=== PATIENT | male | born 1950 | race Caucasian/White ===

== ENCOUNTER 2016-08-19 07:47 | Inpatient (IN) ==
[2016-08-18 11:19] LABS: HEMATOCRIT 39.2 % (42.0-52.0); HEMOGLOBIN 13.1 g/dL (14.0-18.0); MCH 31.6 PG (27-31); MCHC 33.4 g/dL (33-37); MCV 94.7 FL (81-99); MPV 9.7 FL (7.4-10.4); RBC 4.14 XMIL (4.7-6.1)
[2016-08-18 11:21] LABS: AGAP 9; BUN 24 mg/dL (8-22); CALCIUM 9.3 mg/dL (8.8-10.2); CHLORIDE 102 mmol/L (98-107); COSMO 280; POTASSIUM 4.8 mmol/L (3.5-5.1); SODIUM 138 mmol/L (136-145); TCO2 27 mmol/L (25-35)
--- NOTE | 2016-08-18 13:59 | EKG Report ---
Test Performed on : 08/18/2016 10:53:33 AM Test Reason : PAT Blood Pressure : / mmHG Vent. Rate : 054 BPM Atrial Rate : 054 BPM P-R Int : 156 ms QRS Dur : 084 ms QT Int : 432 ms P-R-T Axes : 000 082 049 degrees QTc Int : 409 ms Sinus bradycardia. Otherwise normal ECG When compared with ECG of 12-FEB-2009 14:58, Vent. rate has decreased BY 48 BPM Confirmed by Mack FRANCE, Ozzie Edmonds ([id number]) on 08/20/2016 5:19:51 PM
[2016-08-19] MEDS ORDERED: PEPCID ONE (08:11)
[2016-08-19] MEDS ORDERED: REGLAN ONE (08:11)
[2016-08-19] MEDS ORDERED: LR 1,000 ML ONE (08:11)
[2016-08-19] MEDS ORDERED: KEFZOL 1 GM/D5W 50 ML ONE (08:11)
[2016-08-19] MEDS ORDERED: KEFZOL ONE (10:36)
[2016-08-19] MEDS ORDERED: XYLOCAINE 1%/EPI 1:100,000 ONE (10:36)
[2016-08-19] MEDS ORDERED: HEPARIN ONE (10:36)
[2016-08-19] MEDS ORDERED: NS 250 ML ONE (10:36)
[2016-08-19] MEDS ORDERED: DIPRIVAN 1% ONE (11:20)
--- NOTE | 2016-08-19 11:40 | OPERATIVE NOTE ---
PROCEDURE DATE: 08/19/2016 PROCEDURE PERFORMED: Left subclavian port placement. SURGEON: Alex Serrano MD DIRECTOR OF MARKET INTELLIGENCE: Charis. PREOPERATIVE DIAGNOSIS: Metastatic cancer of the rectum. POSTOPERATIVE DIAGNOSIS: Metastatic cancer of the rectum. DESCRIPTION OF PROCEDURE: Satisfactory general anesthesia was achieved. An LMA was used. The left side of the neck and upper anterior chest were prepped and draped in a sterile fashion. We anesthetized the skin in the deltopectoral groove with 1% lidocaine with epinephrine. We incised the skin and developed a subcutaneous pocket inferior to the incision just over the pectoralis major muscle. It was large enough to admit the PowerPort easily. We then accessed the left subclavian vein on the first stick without difficulty. We passed the guidewire without difficulty under fluoroscopic guidance into the superior vena cava. We then passed the dilator and introducer sheath over the guidewire. We then removed the dilator and guidewire and introduced the 9.6-[place] single-lumen silicone catheter through the sheath into the superior vena cava to the junction of the right atrium. We cut the catheter to the appropriate length, passed it on the stem of the port and locked it in position. We placed the port within the pocket. We secured the port there with a 2-0 silk through the subcutaneous tissue and the hole in the rim of the port. We irrigated out the port pocket with Kefzol-impregnated saline. We then closed the subcutaneous tissue with 3-0 Polysorb. We accessed the port. It aspirated and irrigated easily. We gave the patient 4 mL of Hep-Lock. We then closed the skin with a 4-0 Polysorb subcuticular stitch. Telfa and a sterile Op-Site were applied. He tolerated it well and was sent to the recovery room in satisfactory condition.
[2016-08-19] MEDS ORDERED: ZOFRAN ONE (11:41)
[2016-08-19] MEDS ORDERED: XYLOCAINE-MPF 2% ONE (11:41)
[2016-08-19] MEDS ORDERED: NS 1,000 ML ONE (11:45)
[2016-08-19] MEDS ORDERED: ZOFRAN IV PRN ×2 (12:13→12:16)
[2016-08-19] MEDS ORDERED: TYLENOL PO PRN (12:13)
[2016-08-19] MEDS ORDERED: NS 1,000 ML IV SCH ×2 (12:15→12:16)
[2016-08-19] MEDS ORDERED: VENTOLIN HFA INH PRN ×2 (12:16→12:18)
[2016-08-19] MEDS ORDERED: NEURONTIN PO SCH (13:00)
--- NOTE | 2016-08-19 14:01 | CONSULTATION ---
DATE OF CONSULTATION: 08/19/2016 REASON FOR CONSULT: This patient is known to us with metastatic rectal adenocarcinoma to the liver. He had a Port-A-Cath placed today and is being admitted for cycle 1 FOLFIRI with Avastin. HISTORY OF PRESENT ILLNESS: This patient with metastatic rectal adenocarcinoma to the liver status post left subclavian port by Dr. Serrano today is being admitted for initiation of FOLFIRI with Avastin. He is KRAS wild-type. The plan is to proceed with 90% 5-FU and irinotecan beginning today along with Avastin as patient will be admitted under the hospitalist program. Patient does have known bilateral peripheral neuropathy of lower extremities which is why we are avoiding oxaliplatin based chemotherapy. Patient had initially gone to the ER and was referred to Dr. Jennings for colonoscopy. Underwent a colonoscopy which revealed a 4 cm ulcerated mass in the rectum 10 cm from the entry site causing moderate obstruction, the obstruction was traversed. He was then diagnosed with metastatic rectal adenocarcinoma of the liver on CT scan. REVIEW OF SYSTEMS: All other review of systems are negative. ALLERGIES: No known allergies. MEDICATIONS: Gabapentin, lisinopril, Crestor and Mobic. PAST MEDICAL HISTORY: Positive for metastatic rectal adenocarcinoma of the liver, hypertension, hyperlipidemia and neuropathy. SOCIAL HISTORY: Patient smokes half pack cigarettes per day. He has done so for approximately 20 years. Denies alcohol or illicit drug use. FAMILY HISTORY: Noncontributory. PHYSICAL EXAMINATION: Constitutional: The patient appears emaciated, in no acute distress. Eyes: Anicteric. Pupils equal, round, symmetric. ENT: Oral mucosa normal. Cardiovascular: S1, S2 audible auscultation with no heaves, lifts thrills. Pulmonary: Breath sounds clear to auscultation. Normal respiratory effort GI: Abdomen nondistended. Positive bowel sounds. Skin: No petechiae, ecchymosis, or rash. Lymphatic: No palpable enlarged lymph nodes. Neurologic: Alert and oriented x3. DIAGNOSTIC DATA: WBC is 12.18, hemoglobin 13.1, hematocrit 39.2, platelet count is 203,000. Sodium is 138, potassium is 4.8, BUN is 24, creatinine is 1.1. ASSESSMENT AND PLAN: 1. Metastatic rectal adenocarcinoma to the liver. We will begin with cycle 1, day 1 FOLFIRI with Avastin with 5-FU and irinotecan dose reduced by 10%. We will follow his labs closely. Monitor for infusion reactions and side effects. 2. Peripheral neuropathy to bilateral feet. We are avoiding oxaliplatin based chemotherapy at this time. 3. IV access, status post port placement. 4. Deep vein thrombosis prophylaxis. Patient is on Lovenox. 5. Antiemetics: Zofran and decadron. Dictated by ASHLEY Charles for Nikita Flores MD [facility]
--- NOTE | 2016-08-19 14:22 | HISTORY AND PHYSICAL ---
PRIMARY CARE PROVIDER: Joanna. PRIMARY ONCOLOGIST: Dr. Flores. PRIMARY LEARNING AND DEVELOPMENT MANAGER: Dr. Jennings. CHIEF COMPLAINT: Abdominal cramps. HISTORY OF PRESENT ILLNESS: Mr. Ruffin is a 66-year-old, male, with past medical history of hypertension, hyperlipidemia, COPD and diverticulosis who states that earlier last month, particularly the beginning of July he started having abdominal cramps, and decreased bowel movement and frequency. He went to the ER, who sent him to Dr. Jennings as outpatient. Prior to colonoscopy and EGD he was sent for an abdominal CT which showed a mass in the rectosigmoid junction with mets to the liver and colonoscopy/EGD was aborted. He was sent to Dr. Flores who will be treating him for cancer. Today he came in and had a port placement for chemotherapy treatment. Currently he is in no acute distress. He is able to answer all questions appropriately in room 364. Will continue to follow for medical management while Dr. Flores manages his cancer. PAST MEDICAL HISTORY: Hypertension, hyperlipidemia, COPD, now with a mass in the rectosigmoid junction, mets to the liver, left renal stones, and diverticulosis. SURGICAL HISTORY: Port placement in a stage skin graft from cutler. SOCIAL HISTORY: Half pack per day smoker x40 years. Denies alcohol or illicit drug use. His ex- was in the room with him. FAMILY HISTORY: Father with CAD and acute DE. Mother with diabetes mellitus type 2. REVIEW OF SYSTEMS: A Fourteen point review of systems were complete and all were negative except for those mentioned in above HPI. LABORATORY DATA: White blood cells 12,000, hemoglobin 13, hematocrit 39, platelet count 203,000. Sodium 138, potassium 4.8, BUN 24, creatinine is 1.1, glucose 103, calcium 9.3. IMAGING: Abdominal pelvic CT performed on 08/02/2016 revealed a circumferential mass in the rectosigmoid junction, hypodense liver lesions consistent with metastasis, nonobstructive left renal stones, arthrosclerosis, and diverticulosis. PHYSICAL EXAMINATION: VITAL SIGNS: Temperature 97.5 degrees, heart rate 55, respiratory rate 16, blood pressure 114/68, O2 saturation 98%, blood pressure 116/52. GENERAL: Mr. Ruffin is a 66-year-old, male, in no acute distress, able to answer questions appropriately. HEENT: Atraumatic, normocephalic. Pupils equal, round, reactive to light. Extraocular movements intact. Mucous membranes are dry. NECK: No JVD or carotid bruits noted. CARDIOVASCULAR: S1, S2. Bradycardic rate and rhythm. No rubs, gallops, murmurs. PULMONARY: Clear to auscultate. Bilateral breath sounds. No accessory muscle use or work of breathing. Decreased in the bases. Currently on room air. GASTROINTESTINAL: Soft, nontender, nondistended. Positive bowel sounds x4. NEUROLOGIC: Alert and oriented x4. Moves all extremities equally. EXTREMITIES: No edema noted. +2 dorsalis and radial pulses. SKIN: Warm, dry, intact. Port site dry and intact. No hematoma. ASSESSMENT AND PLAN: 1. Mass in the rectosigmoid junction with metastases to the liver. Dr. Flores will be following. He has a new port. Will be starting chemotherapy soon. 2. Hypertension. Continue home medications. 3. Hyperlipidemia. Continue lovastatin. 4. Chronic obstructive pulmonary disease. Continue p.r.n. inhaler albuterol. 5. Tobacco abuse. Cessation discussed. Nicotine patch was ordered per patient request. 6. Deep venous thrombosis prophylaxis Lovenox. 7. Gastrointestinal prophylaxis proton pump inhibitor. Dictated by ASHLEY Rubio for Master Enrique MD
[2016-08-19 14:42] LABS: MANUAL DIFF NEEDED? NO
[2016-08-19] MEDS: NEURONTIN PO SCH ×2 (14:49→21:49)
[2016-08-19] MEDS: NICODERM PATCH TD SCH (14:49)
[2016-08-19 14:55] LABS: BASO% 1.2 % (0.0-0.8); EOS# 0.38 X1000 (0.0-0.7); EOS% 4.5 % (0.0-10.0); HEMATOCRIT 37.8 % (42.0-52.0); HEMOGLOBIN 12.7 g/dL (14.0-18.0); IMM GRAN# 0.02 X1000 (0.0-0.04); IMM GRAN% 0.2 % (0.0-0.5); LYMPH# 2.69 X1000 (1.2-3.4); LYMPH% 31.6 % (20.5-51.1); MCH 31.4 PG (27-31); MCHC 33.6 g/dL (33-37); MCV 93.6 FL (81-99); MONO# 0.59 X1000 (0.11-0.59); MONO% 6.9 % (1.7-9.3); MPV 9.9 FL (7.4-10.4); NEUT% 55.6 % (42.2-75.2); PLT 208 X1000 (130-400); RBC 4.04 XMIL (4.7-6.1)
[2016-08-19] MEDS ORDERED: ZOFRAN 16 MG in NS 100 ML IV ONE ×2 (15:00→18:00)
[2016-08-19] MEDS ORDERED: NS IV ONE ×3 (15:00→19:45)
[2016-08-19] MEDS ORDERED: DECADRON IV ONE (15:00)
[2016-08-19] MEDS: NORCO-5 PO PRN ×2 (15:32→21:50)
[2016-08-19] MEDS ORDERED: REGLAN PO PRN (15:39)
[2016-08-19] MEDS ORDERED: AVASTIN IV ONE (16:00)
[2016-08-19] MEDS ORDERED: [UNRECOGNIZED DRUG - OTHER] IV ONE (17:30)
[2016-08-19] MEDS ORDERED: CAMPTOSAR IV ONE (17:30)
[2016-08-19] MEDS ORDERED: ATROPINE IV ONE (17:30)
[2016-08-19] MEDS ORDERED: D5W IV ONE ×2 (17:30)
[2016-08-19] MEDS ORDERED: PRILOSEC PO SCH (19:00)
[2016-08-19] MEDS ORDERED: [UNRECOGNIZED DRUG - MIXTURE] IV ONE (19:30)
[2016-08-19] MEDS ORDERED: [UNRECOGNIZED DRUG - OTHER] IV ONE (19:45)
[2016-08-19] MEDS: PHENERGAN PO PRN (22:15)
[2016-08-20] MEDS: NORCO-5 PO PRN ×3 (02:52→21:26)
[2016-08-20 06:31] LABS: INR 1.01; PROTIME 10.7 Seconds (9.2-11.7); PTT 24.7 Seconds (22.0-36.0)
[2016-08-20 06:49] LABS: ALBUMIN 3.8 g/dL (3.5-5.0); CALCIUM 9.4 mg/dL (8.8-10.2); MAGNESIUM 2.1 mg/dL (1.5-2.7); POTASSIUM 4.8 mmol/L (3.5-5.1); TOTAL BILIRUBIN 0.36 mg/dL (0.20-1.00); TOTAL PROTEIN 6.4 g/dL (6.3-8.3)
[2016-08-20 08:25] LABS: BASO% 0.1 % (0.0-0.8); HEMATOCRIT 38.7 % (42.0-52.0); HEMOGLOBIN 13.2 g/dL (14.0-18.0); IMM GRAN# 0.03 X1000 (0.0-0.04); IMM GRAN% 0.2 % (0.0-0.5); LYMPH# 1.33 X1000 (1.2-3.4); LYMPH% 10.4 % (20.5-51.1); MANUAL DIFF NEEDED? YES; MCH 31.4 PG (27-31); MCHC 34.1 g/dL (33-37); MCV 92.1 FL (81-99); MONO# 0.35 X1000 (0.11-0.59); MONO% 2.7 % (1.7-9.3); MPV 10.6 FL (7.4-10.4); NEUT% 86.6 % (42.2-75.2); PLT 213 X1000 (130-400)
[2016-08-20] MEDS: MOBIC PO SCH (08:32)
[2016-08-20] MEDS: MIRALAX PO SCH (08:32)
[2016-08-20] MEDS: PRILOSEC PO SCH (08:32)
[2016-08-20] MEDS: NICODERM PATCH TD SCH ×2 (08:32→22:00)
[2016-08-20] MEDS: PERIDEX MT SCH ×2 (08:32→20:19)
[2016-08-20] MEDS: PRINIVIL PO SCH (08:33)
[2016-08-20] MEDS: MEVACOR PO SCH (08:33)
[2016-08-20] MEDS: NEURONTIN PO SCH ×3 (08:33→19:01)
[2016-08-20] MEDS: LOVENOX SUBQ SCH (08:33)
[2016-08-20 08:39] LABS: BANDS 4 % (0-1); LYMPHS 6 % (21-51); MONO 8 % (1-9)
[2016-08-20] MEDS ORDERED: MELOXICAM 15 MG PO SCH (09:00)
[2016-08-20] MEDS ORDERED: MIRALAX PO SCH (09:00)
[2016-08-20] MEDS ORDERED: MEVACOR PO SCH (09:00)
[2016-08-20] MEDS ORDERED: PRINIVIL PO SCH (09:00)
--- NOTE | 2016-08-20 11:48 | PROGRESS NOTE ---
DATE: 08/20/2016 SUBJECTIVE: Mr. Ruffin is a 66-year-old, male. He is in no acute distress. He is able to answer all questions appropriately. He states that he has no pain, nausea or vomiting. No complaints at this time. OBJECTIVE: Vital Signs: Temperature 97.8 degrees, heart rate 68, respiratory rate 18, blood pressure 109/56, O2 saturation 97%. General: Mr. Ruffin is a 66-year-old, male, in no acute distress. Able to answer all questions appropriately. Cardiovascular: S1, S2. Regular rate and rhythm. No rubs, gallops, or murmurs. Pulmonary: Clear to auscultate. Bilateral breath sounds. No accessory muscle use or work of breathing noted. GI: Abdomen soft, nontender, nondistended. Positive bowel sounds x4. Extremities: No edema noted. There are +2 dorsalis and radial pulses. Neurologic: A and O x4. Moves all extremities equally. LABORATORY DATA: White blood cells 12,000, hemoglobin 13, hematocrit 38, platelet count 213. Sodium 139, potassium 4.8, BUN 25, creatinine is 1.3. Glucose 131, magnesium 2.1. Liver enzymes normal. Carcinoembryonic antigen 13.5. IMAGING: None. ASSESSMENT AND PLAN: 1. Metastatic rectal adenocarcinoma to the liver. He completed FOLFIRI with Avastatin with 5-FU and irinotecan. Currently no side effects noted at this time. Followed by Dr. Flores. He has a new Port-A-Cath in the left chest. 2. Hypertension. Continue home medications. 3. Hyperlipidemia. Continue lovastatin. 4. Lower extremity neuropathy. Continue home medications. 5. Chronic obstructive pulmonary disease. Continue as-needed inhaler albuterol. 6. Tobacco abuse. Cessation discussed. Nicotine patch ordered. 7. Situational depression and anxiety. Will start with Remeron at night and as- needed Xanax. 8. Deep venous thrombosis prophylaxis, Lovenox. 9. Gastrointestinal prophylaxis, proton pump inhibitor. 10. Continue to monitor serum creatinine and BUN as they are slightly elevated. Dictated by ASHLEY Rubio for Master Enrique MD MTDD
[2016-08-20 16:22] LABS: URINE CULTURE NEEDED? NO; URINE MICRO REVIEW NEEDED? NO; URINE SOURCE CLEAN CATCH
[2016-08-20 16:41] LABS: BILIRUBIN URINE NEGATIVE (NEGATIVE); BLOOD URINE NEGATIVE (NEGATIVE); COLOR YELLOW; GLUCOSE URINE NEGATIVE (NEGATIVE); LEUKOCYTES URINE NEGATIVE (NEGATIVE); NITRITE URINE NEGATIVE (NEGATIVE); PROTEIN URINE NEGATIVE (NEGATIVE); TURBIDITY URINE CLEAR (CLEAR); UROBILINOGEN URINE NORMAL (NORMAL)
[2016-08-20 16:42] LABS: UR EPITHELIAL CELLS <10 /HPF (<10); URINE BACTERIA NEGATIVE /HPF; URINE RBC <10 /HPF (<10); URINE WBC <10 /HPF (<10)
[2016-08-20] MEDS ORDERED: ZOFRAN 16 MG in NS 100 ML IV ONE (18:00)
[2016-08-20] MEDS ORDERED: [UNRECOGNIZED DRUG - MIXTURE] IV ONE (18:30)
[2016-08-20] MEDS ORDERED: [UNRECOGNIZED DRUG - OTHER] IV ONE (18:45)
[2016-08-20] MEDS ORDERED: NS IV ONE (18:45)
[2016-08-20] MEDS: REMERON SOLTAB PO SCH (20:19)
[2016-08-21] MEDS: PHENERGAN PO PRN (03:15)
[2016-08-21] MEDS: NORCO-5 PO PRN (03:15)
[2016-08-21] MEDS: NORCO-10 PO PRN ×4 (05:57→21:49)
[2016-08-21 06:10] LABS: MANUAL DIFF NEEDED? NO
[2016-08-21 06:22] LABS: BASO% 0.4 % (0.0-0.8); EOS# 0.17 X1000 (0.0-0.7); EOS% 1.8 % (0.0-10.0); HEMATOCRIT 35.3 % (42.0-52.0); HEMOGLOBIN 11.8 g/dL (14.0-18.0); LYMPH# 3.12 X1000 (1.2-3.4); LYMPH% 33.1 % (20.5-51.1); MCH 31.3 PG (27-31); MCHC 33.4 g/dL (33-37); MCV 93.6 FL (81-99); MONO# 0.87 X1000 (0.11-0.59); MONO% 9.2 % (1.7-9.3); MPV 9.9 FL (7.4-10.4); NEUT% 55.5 % (42.2-75.2); PLT 179 X1000 (130-400); RBC 3.77 XMIL (4.7-6.1)
[2016-08-21 06:39] LABS: ALBUMIN 3.3 g/dL (3.5-5.0); CALCIUM 8.5 mg/dL (8.8-10.2); POTASSIUM 3.9 mmol/L (3.5-5.1); TOTAL BILIRUBIN 0.15 mg/dL (0.20-1.00); TOTAL PROTEIN 5.6 g/dL (6.3-8.3)
[2016-08-21] MEDS ORDERED: XANAX PO PRN (09:15)
[2016-08-21] MEDS: MEVACOR PO SCH (09:16)
[2016-08-21] MEDS: PRILOSEC PO SCH (09:16)
[2016-08-21] MEDS: MOBIC PO SCH (09:16)
[2016-08-21] MEDS: LOVENOX SUBQ SCH (09:17)
[2016-08-21] MEDS: NEURONTIN PO SCH ×3 (09:17→17:40)
[2016-08-21] MEDS: PRINIVIL PO SCH (09:17)
[2016-08-21] MEDS: PERIDEX MT SCH (09:17)
[2016-08-21] MEDS: MIRALAX PO SCH (09:17)
[2016-08-21] MEDS: NICODERM PATCH TD SCH ×2 (09:18→21:48)
--- NOTE | 2016-08-21 11:28 | PROGRESS NOTE ---
DATE: 08/21/2016 SUBJECTIVE: Mr. Byron Ruffin states that he is a little worried about being unable to afford some of his medications once he is discharged for his nausea medications. He is requesting that on discharge he get either Phenergan or Reglan as he can afford these. He states he cannot afford Zofran, so medications may possibly be an issue. Will make sure that Title I Director is on board. Otherwise, he states no complaints of pain other than some tenderness at the injection site where he gets Lovenox. No nausea. Eating well. No complaints at this time. OBJECTIVE: Vital Signs: Temperature 97.7 degrees, heart rate 52, respiratory rate 20, blood pressure 125/60, and O2 saturation 98% on room. General: Mr. Ruffin is a 66-year-old male in no acute distress. Able to answer all questions appropriately. Cardiovascular: S1 and S2. Bradycardic rate and rhythm. No rubs, gallops, or murmurs. Pulmonary: Clear to auscultation. Bilateral breath sounds. No accessory muscle use or work of breathing noted. Gastrointestinal: Soft, nontender, nondistended. Positive bowel sounds x4. Some mild tenderness at the injection site in the left lower quadrant, where the Lovenox is given. Extremities: No edema noted. Dorsalis and radial pulses +2. Neurologic: A and O x4. Moves all extremities equally. LABORATORY DATA: White blood cells 9000, hemoglobin 11, hematocrit 35, platelet count 179,000. Sodium 144, potassium 3.9, BUN 26, creatinine 1.3, glucose 97, calcium 8.5, total bilirubin 0.15, AST 27, ALT 23, albumin 3.3. Urinalysis negative. ASSESSMENT AND PLAN: 1. Metastatic rectal adenocarcinoma to the liver. He completed FOLFIRI with Avastin with 5-FU and irinotecan on admit, and has had another dose of 5-FU repeated earlier this morning, so today is round 2 of chemotherapy. He has been followed by Dr. Flores. His new Port-A-Cath of the left chest looks dry and intact. 2. Hypertension. Continue on medications. 3. Hyperlipidemia. Continue lovastatin. 4. Lower extremity neuropathy. Continue home medications. 5. Chronic obstructive pulmonary disease. Continue as-needed inhaler, albuterol. 6. Tobacco abuse. Continue with nicotine patch. Cessation discussed. 7. Situational depression and anxiety. We continue with Remeron and added Xanax p.r.n. 8. Some acute kidney injury. Will continue to trend. 9. Deep venous thrombosis prophylaxis with Lovenox. 10. Gastrointestinal prophylaxis with proton pump inhibitor. Dictated by ASHLEY Rubio for Master Enrique MD
[2016-08-21] MEDS: REMERON SOLTAB PO SCH (21:49)
[2016-08-22] MEDS: NORCO-10 PO PRN ×3 (02:31→12:38)
[2016-08-22] MEDS: PERIDEX MT SCH ×2 (06:04→09:40)
[2016-08-22 06:14] LABS: MANUAL DIFF NEEDED? NO
[2016-08-22 06:18] LABS: BASO% 0.7 % (0.0-0.8); EOS# 0.51 X1000 (0.0-0.7); HEMATOCRIT 38.2 % (42.0-52.0); HEMOGLOBIN 12.8 g/dL (14.0-18.0); IMM GRAN# 0.02 X1000 (0.0-0.04); IMM GRAN% 0.2 % (0.0-0.5); LYMPH# 3.03 X1000 (1.2-3.4); LYMPH% 35.4 % (20.5-51.1); MCH 31.4 PG (27-31); MCHC 33.5 g/dL (33-37); MCV 93.6 FL (81-99); MONO# 0.37 X1000 (0.11-0.59); MONO% 4.3 % (1.7-9.3); MPV 9.9 FL (7.4-10.4); NEUT% 53.4 % (42.2-75.2); PLT 185 X1000 (130-400); RBC 4.08 XMIL (4.7-6.1)
[2016-08-22 06:53] LABS: AGAP 11; ALBUMIN 3.5 g/dL (3.5-5.0); ALKALINE PHOSPHATASE 62 U/L (32-122); BUN 22 mg/dL (8-22); CALCIUM 8.9 mg/dL (8.8-10.2); CHLORIDE 104 mmol/L (98-107); COSMO 286; GOT 21 U/L (10-34); GPT 21 U/L (10-44); POTASSIUM 4.6 mmol/L (3.5-5.1); SODIUM 142 mmol/L (136-145); TCO2 27 mmol/L (25-35); TOTAL BILIRUBIN 0.26 mg/dL (0.20-1.00); TOTAL PROTEIN 5.7 g/dL (6.3-8.3)
[2016-08-22 08:57] VITALS: BP 143/68
[2016-08-22] MEDS: PRILOSEC PO SCH (09:40)
[2016-08-22] MEDS: NICODERM PATCH TD SCH (09:40)
[2016-08-22] MEDS: MOBIC PO SCH (09:40)
[2016-08-22] MEDS: MIRALAX PO SCH (09:40)
[2016-08-22] MEDS: MEVACOR PO SCH (09:40)
[2016-08-22] MEDS: NEURONTIN PO SCH (09:40)
[2016-08-22] MEDS: PRINIVIL PO SCH (09:40)
[2016-08-22] MEDS: LOVENOX SUBQ SCH (09:40)
--- NOTE | 2016-08-22 18:19 | DISCHARGE SUMMARY ---
ADMISSION DATE: 08/19/2016 DISCHARGE DATE: 08/22/2016 ADMISSION DIAGNOSES: 1. Mass in the rectosigmoid junction with metastasis to the liver. 2. Hypertension. 3. Hyperlipidemia. 4. Chronic obstructive pulmonary disease. 5. Tobacco abuse. DISCHARGE DIAGNOSES: 1. Metastatic rectal adenocarcinoma to the liver receiving chemotherapy, has a new left chest port. 2. Hypertension. 3. Hyperlipidemia. 4. Lower extremity neuropathy. 5. Chronic obstructive pulmonary disease no exacerbation. 6. Tobacco abuse. 7. Situational depression, anxiety. 8. Mild acute kidney injury resolved. CONSULTATIONS: 1. Dr. Flores for chemotherapy. 2. Dr. Serrano who put in a left chest port. PROCEDURES: Left chest port placement on 08/19/[address] Serrano. HOSPITAL COURSE: Mr. Ruffin is a 66-year-old male with past medical history of hypertension, hyperlipidemia, COPD, who has been having abdominal cramps since early July with decreased bowel movements and frequency and was seen by Dr. Jennings as outpatient, had abdominal CT prior to admission that showed a mass in the rectosigmoid junction was metastasis to liver. He was then sent to Dr. Flores for chemotherapy treatment, came in from home, had a port placed and has been monitored over the last couple of days who has received 2 rounds of chemotherapy. He did have a little bit of mild JANET which is resolved. He developed some anxiety. States that he is depressed over his diagnosis and was started on anxiety and antidepressant medication. DISCHARGE LAB DATA: White blood cells 8000, hemoglobin 12, hematocrit 38, platelet count 185,000. Sodium 142, potassium 4.6, BUN 22, creatinine is 1.2, glucose 98, total protein 5.7, albumin 3.5. Urinalysis negative. The carcinoembryonic antigen was 13.5. IMAGING: He had a EKG showed sinus bradycardia, rate 54 with a QTc of 409. DISCHARGE DIET: Regular. MEDICATIONS: Neurontin 800 p.o. t.i.d., albuterol sulfate 2 puffs inhaled as needed, Nexium 20 mg p.o. daily, Mobic 15 mg p.o. daily, lovastatin 20 mg p.o. daily, MiraLAX 17 g p.o. daily, lisinopril 5 mg p.o. daily, Phenergan or Reglan p.r.n. for antiemetics as he states he cannot afford Zofran, Remeron for depression and insomnia and Xanax for anxiety. DISCHARGE VITALS: Temperature 97.5 degrees, heart rate 65, respiratory rate 20, blood pressure 143/68, 97% on room air. DISCHARGE DISPOSITION: Home. DISCHARGE INSTRUCTIONS: Follow up with Dr. Flores when he has directed likely in the next 1-2 weeks. Dictated by ASHLEY Rubio for Master Enrique MD
== END 2016-08-22 12:40 | disposition home or self-care (01) | DRG 847 ==
LOC: OPS 07:47 → 3N 11:57 → OBSVTOIN 11:57
PROVIDERS: ATTEND Internal Medicine
PROC: 02HV33Z Insertion of Infusion Device into Superior Vena Cava, Percutaneous Approach (ICD-10-PCS; 2016-08-19)
PROC: B5181ZA Fluoroscopy of Superior Vena Cava using Low Osmolar Contrast, Guidance (ICD-10-PCS; 2016-08-19)
PROC: 3E0330M Introduction of Antineoplastic, Monoclonal Antibody, into Peripheral Vein, Percutaneous Approach (ICD-10-PCS; 2016-08-19)
PROC: 3E03305 Introduction of Other Antineoplastic into Peripheral Vein, Percutaneous Approach (ICD-10-PCS; 2016-08-19)
PROC: 0JH60XZ Insertion of Tunneled Vascular Access Device into Chest Subcutaneous Tissue and Fascia, Open Approach (ICD-10-PCS; principal; 2016-08-19 10:40)
DX: Z51.11 Encounter for antineoplastic chemotherapy (principal); C19 Malignant neoplasm of rectosigmoid junction; N17.9 Acute kidney failure, unspecified; C78.7 Secondary malignant neoplasm of liver and intrahepatic bile duct; G62.9 Polyneuropathy, unspecified; I10 Essential (primary) hypertension; K21.9 Gastro-esophageal reflux disease without esophagitis; J44.9 Chronic obstructive pulmonary disease, unspecified; E78.5 Hyperlipidemia, unspecified; F17.210 Nicotine dependence, cigarettes, uncomplicated; F43.21 Adjustment disorder with depressed mood; K57.90 Diverticulosis of intestine, part unspecified, without perforation or abscess without bleeding; M19.90 Unspecified osteoarthritis, unspecified site; F41.9 Anxiety disorder, unspecified; Z87.442 Personal history of urinary calculi; Z82.49 Family history of ischemic heart disease and other diseases of the circulatory system; Z83.3 Family history of diabetes mellitus; Z79.899 Other long term (current) drug therapy; Z79.1 Long term (current) use of non-steroidal anti-inflammatories (NSAID)
CPT/HCPCS: 77001; 80048; 80053; 81001; 82378; 83735; 85025; 85027; 85610; 85730; 87040; 93005; 93010; 94761; C1788; J0461; J0641; J0690; J1650; J2405; J7030; J7050; J7060; J7120; J9035; J9190; J9205

== ENCOUNTER 2016-09-21 09:01 | Inpatient (IN) ==
--- NOTE | 2016-09-21 11:58 | HISTORY AND PHYSICAL ---
PRIMARY CARE PHYSICIAN: Dr. Marshall PRIMARY ONCOLOGIST: Dr. Flores PRIMARY PROFILE GRINDER TECHNICIAN: Dr. Jennings CHIEF COMPLAINT: The patient has known metastatic rectal adenocarcinoma to the liver, here for cycle 3 of FOLFIRI and Avastin. HISTORY OF PRESENT ILLNESS: Mr. Ruffin is a pleasant 66-year-old male with metastatic rectal adenocarcinoma to the liver. He has completed 2 cycles of FOLFIRI with Avastin which he has tolerated well, and he is here for cycle 3 of the same. He has known neuropathy to bilateral lower extremities, so we are avoiding oxaliplatin-based chemotherapy. He has a left port intact. The patient continues to smoke approximately 1/2 pack of cigarettes per day. He was last seen in our clinic yesterday. His labs and vital signs were stable. He denied fevers, chills, new lumps, bumps or bone pain. No abdominal symptoms. REVIEW OF SYSTEMS: Negative unless indicated in HPI. ALLERGIES: There are no known allergies. HOME MEDICATIONS: Rewey 10 mg every 6 hours, Phenergan, Reglan and Zofran p.r.n. SOCIAL HISTORY: The patient continues to smoke 1/2 pack daily for the past 40 years. Denies alcohol or illicit drug use. PAST MEDICAL HISTORY: Metastatic rectal adenocarcinoma to the liver as above, hyperlipidemia, COPD. FAMILY HISTORY: Coronary artery disease. PHYSICAL EXAMINATION: VITAL SIGNS: Stable. GENERAL: This is a male in no acute distress. HEENT: Head is normocephalic and atraumatic. Pupils are equal, round and symmetric. Mucous membranes are dry. CARDIOVASCULAR: S1 and S2 audible to auscultation. No heaves, lifts, thrills or murmurs. PULMONARY: Breath sounds are clear to auscultation with normal respiratory effort. SKIN: No petechiae, rashes or ecchymosis. There is a left port intact. GASTROINTESTINAL: Abdomen is soft, nondistended. Positive bowel sounds in all 4 quadrants. LYMPHATICS: No palpably enlarged lymph nodes. NEUROLOGICAL: Alert and oriented x3. PSYCHIATRIC: Appropriate to the situation. DIAGNOSTIC DATA: Labs on 09/20/2016 showed a WBC of 15.2, hemoglobin 12.6, hematocrit 38.4, platelet count 173,000. Sodium is 137, potassium 5.5, BUN is 21, creatinine 1.63. ASSESSMENT AND PLAN: 1. Metastatic rectal adenocarcinoma to the liver. The patient is to receive third cycle of FOLFIRI and Avastin at full dose. Monitor for infusional reactions and side effects. Plan for discharge on day 3 and follow up in the clinic after that unless concerns in the interim. We will check CBC and CMP in the a.m. 2. Bilateral peripheral neuropathy to lower extremities. We will continue to avoid oxaliplatin- based chemotherapy. 3. IV access, status post port placement, looks well. 4. Nicotinism. We will give the patient a transdermal nicotine patch and advise him to discontinue. 5. Chronic obstructive pulmonary disease. We will continue albuterol inhalers p.r.n. 6. Pain. Rewey p.r.n. Dictated by ASHLEY Charles for Nikita Flores MD cc: ASHLEY Charles MD
[2016-09-21] MEDS ORDERED: EMLA CREAM TOP ONE (12:25)
[2016-09-21] MEDS ORDERED: ZOFRAN 16 MG in NS 100 ML IV ONE (13:30)
[2016-09-21] MEDS ORDERED: DECADRON IV ONE (14:00)
[2016-09-21] MEDS ORDERED: NS IV ONE ×2 (14:00→14:30)
[2016-09-21] MEDS ORDERED: AVASTIN IV ONE (14:30)
[2016-09-21] MEDS ORDERED: VENTOLIN HFA INH PRN (14:52)
[2016-09-21] MEDS ORDERED: KAYEXALATE PO ONE (14:53)
[2016-09-21] MEDS ORDERED: ATROPINE IV ONE (15:30)
[2016-09-21] MEDS ORDERED: D5W IV ONE ×2 (15:30)
[2016-09-21] MEDS ORDERED: [UNRECOGNIZED DRUG - OTHER] IV ONE (15:30)
[2016-09-21] MEDS ORDERED: CAMPTOSAR IV ONE (15:30)
[2016-09-21] MEDS: MOBIC PO SCH (15:42)
[2016-09-21] MEDS: PROZAC PO SCH (15:42)
[2016-09-21] MEDS: MIRALAX PO SCH (15:42)
[2016-09-21] MEDS: PRILOSEC PO SCH (15:43)
[2016-09-21] MEDS: NICODERM PATCH TD SCH (15:43)
[2016-09-21] MEDS: NEURONTIN PO SCH ×2 (15:43→20:53)
[2016-09-21] MEDS: PRINIVIL PO SCH (15:43)
[2016-09-21] MEDS: NORCO-10 PO PRN ×2 (15:58→20:53)
[2016-09-21] MEDS ORDERED: [UNRECOGNIZED DRUG - MIXTURE] IV ONE (17:30)
[2016-09-21] MEDS ORDERED: [UNRECOGNIZED DRUG - OTHER] IV SCH (17:45)
[2016-09-21] MEDS ORDERED: NS IV SCH (17:45)
[2016-09-21] MEDS: XANAX PO PRN (19:23)
[2016-09-21] MEDS: MEVACOR PO SCH (19:27)
[2016-09-21] MEDS: PHENERGAN PO PRN (20:53)
[2016-09-22] MEDS: NORCO-10 PO PRN ×4 (00:51→19:44)
[2016-09-22] MEDS: XANAX PO PRN ×4 (00:52→19:44)
[2016-09-22] MEDS: PHENERGAN PO PRN ×3 (06:01→19:44)
[2016-09-22] MEDS: NICODERM PATCH TD SCH ×2 (06:03→09:14)
[2016-09-22] MEDS: NEURONTIN PO SCH ×5 (06:04→21:38)
[2016-09-22] MEDS: PROZAC PO SCH ×2 (06:04→09:14)
[2016-09-22] MEDS: MOBIC PO SCH ×2 (06:05→09:14)
[2016-09-22] MEDS: MEVACOR PO SCH ×2 (06:05→09:13)
[2016-09-22] MEDS: PRILOSEC PO SCH ×2 (06:05→09:14)
[2016-09-22] MEDS: MIRALAX PO SCH ×2 (06:05→09:14)
[2016-09-22] MEDS: PRINIVIL PO SCH ×2 (06:06→09:14)
[2016-09-22 07:19] LABS: MANUAL DIFF NEEDED? NO
[2016-09-22 07:44] LABS: ALBUMIN 3.5 g/dL (3.5-5.0); CALCIUM 8.9 mg/dL (8.8-10.2); POTASSIUM 5.5 mmol/L (3.5-5.1); TOTAL BILIRUBIN 0.43 mg/dL (0.20-1.00); TOTAL PROTEIN 6.5 g/dL (6.3-8.3)
[2016-09-22 07:47] LABS: HEMATOCRIT 38.1 % (42.0-52.0); HEMOGLOBIN 13.1 g/dL (14.0-18.0); LYMPH# 0.93 X1000 (1.2-3.4); LYMPH% 11.7 % (20.5-51.1); MCHC 34.4 g/dL (33-37); MCV 93.2 FL (81-99); MONO# 0.39 X1000 (0.11-0.59); MONO% 4.9 % (1.7-9.3); MPV 9.7 FL (7.4-10.4); NEUT% 83.4 % (42.2-75.2); PLT 180 X1000 (130-400); RBC 4.09 XMIL (4.7-6.1)
[2016-09-22] MEDS ORDERED: KAYEXALATE PO ONE (08:08)
[2016-09-22] MEDS ORDERED: LACTULOSE PO ONE (13:30)
[2016-09-22] MEDS: NS 1,000 ML IV SCH ×2 (13:57→21:39)
[2016-09-22] MEDS ORDERED: ZOFRAN 16 MG in NS 100 ML IV ONE (16:00)
[2016-09-22] MEDS ORDERED: [UNRECOGNIZED DRUG - MIXTURE] IV ONE (16:30)
[2016-09-22] MEDS ORDERED: NS IV SCH (16:45)
[2016-09-22] MEDS ORDERED: [UNRECOGNIZED DRUG - OTHER] IV SCH (16:45)
[2016-09-23] MEDS: NORCO-10 PO PRN ×4 (00:24→16:16)
[2016-09-23] MEDS: XANAX PO PRN ×3 (03:07→16:15)
[2016-09-23] MEDS: PHENERGAN PO PRN (03:34)
[2016-09-23] MEDS: PROZAC PO SCH ×2 (06:00→06:35)
[2016-09-23] MEDS: NICODERM PATCH TD SCH ×2 (06:00→06:36)
[2016-09-23] MEDS: NEURONTIN PO SCH ×3 (06:00→14:28)
[2016-09-23] MEDS: MEVACOR PO SCH ×2 (06:00→06:35)
[2016-09-23] MEDS: MIRALAX PO SCH ×2 (06:00→06:36)
[2016-09-23] MEDS: MOBIC PO SCH ×2 (06:00→06:35)
[2016-09-23] MEDS: PRILOSEC PO SCH ×2 (06:00→06:35)
[2016-09-23 07:00] LABS: MANUAL DIFF NEEDED? NO
[2016-09-23 07:06] LABS: BASO% 0.2 % (0.0-0.8); EOS# 0.02 X1000 (0.0-0.7); EOS% 0.2 % (0.0-10.0); HEMATOCRIT 35.1 % (42.0-52.0); LYMPH# 1.56 X1000 (1.2-3.4); LYMPH% 17.9 % (20.5-51.1); MCH 32.3 PG (27-31); MCHC 34.2 g/dL (33-37); MCV 94.4 FL (81-99); MONO# 0.85 X1000 (0.11-0.59); MONO% 9.7 % (1.7-9.3); MPV 9.9 FL (7.4-10.4); PLT 176 X1000 (130-400); RBC 3.72 XMIL (4.7-6.1)
[2016-09-23 07:20] LABS: AGAP 11; ALBUMIN 3.3 g/dL (3.5-5.0); ALKALINE PHOSPHATASE 73 U/L (32-122); BUN 26 mg/dL (8-22); CALCIUM 8.5 mg/dL (8.8-10.2); CHLORIDE 107 mmol/L (98-107); COSMO 290; GOT 18 U/L (10-34); GPT 12 U/L (10-44); POTASSIUM 4.4 mmol/L (3.5-5.1); SODIUM 143 mmol/L (136-145); TCO2 25 mmol/L (25-35); TOTAL BILIRUBIN 0.49 mg/dL (0.20-1.00); TOTAL PROTEIN 6.4 g/dL (6.3-8.3)
[2016-09-23 08:18] VITALS: BP 113/62
--- NOTE | 2016-09-24 08:29 | DISCHARGE SUMMARY ---
ADMISSION DATE: 09/21/2016 DISCHARGE DATE: 09/23/2016 ADMITTING DIAGNOSES: 1. Metastatic rectal carcinoma to liver. 2. Chronic obstructive pulmonary disease. 3. Nicotinism. DISCHARGE DIAGNOSES: 1. Metastatic rectal adenocarcinoma to the liver. 2. Chronic obstructive pulmonary disease. 3. Nicotinism. 4. Renal insufficiency. HOSPITAL COURSE: This male with history of metastatic rectal adenocarcinoma to the liver was admitted for his third cycle of FOLFIRI with Avastin, which he tolerated well, received through his port. He did not have any fevers, chills, dyspnea, new abdominal symptoms. He did have some hyperkalemia, which was initially treated with Kayexalate. The patient did not have any bowel movements. That was changed to lactulose. During this time, he also had some renal insufficiency. Creatinine went up to 1.5. His lisinopril has been discontinued. His creatinine has come down nicely. He has also had some bowel movements and his potassium has normalized. He will be sent home without his lisinopril. He has been told to stop it. He continues to have some pain that is controlled with Elgin. Patient, otherwise, did quite well. DISCHARGE LABORATORY DATA: WBC is 8.73. Hemoglobin 12.0. Hematocrit 35.1. Platelet count is 176,000. Sodium is 143. Potassium 4.4. BUN is 26. Creatinine is 1.2. DISCHARGE VITAL SIGNS: Stable. IMAGING: There was no imaging. DISCHARGE DIET: Regular. HOME MEDICATIONS: 1. He will continue his albuterol inhaler. 2. Xanax 0.25 p.o. t.i.d. p.r.n. 3. Prozac 20 mg a day. 4. Neurontin 800 mg t.i.d. 5. Elgin 10 mg q.4 hours p.r.n. 6. Lovastatin 20 mg p.o. daily. 7. Meloxicam 15 mg daily. 8. Nicotine patch. 9. Prilosec. DISCHARGE DISPOSITION: Home. Self care. Follow-up instructions is to follow up with Dr. Flores in the clinic as outpatient in the near future. Dictated by ASHLEY Charles for Nikita Flores MD cc: ASHLEY Charles MD
== END 2016-09-23 17:46 | disposition home or self-care (01) ==
LOC: DIRADM 09:01 → 3N 11:11 → DIRADM 09-22 08:56 → 3N 09-22 09:32
PROVIDERS: ADMIT Internal Medicine Medical Oncology; ATTEND Internal Medicine Medical Oncology

== ENCOUNTER 2016-10-06 12:39 | Inpatient (IN) ==
[2016-10-06] MEDS ORDERED: EMLA CREAM TOP ONE (13:25)
[2016-10-06 15:00] LABS: MANUAL DIFF NEEDED? NO
[2016-10-06 15:05] LABS: BASO% 1.1 % (0.0-0.8); EOS# 0.43 X1000 (0.0-0.7); EOS% 6.7 % (0.0-10.0); HEMATOCRIT 37.4 % (42.0-52.0); HEMOGLOBIN 12.9 g/dL (14.0-18.0); LYMPH# 1.91 X1000 (1.2-3.4); LYMPH% 29.8 % (20.5-51.1); MCH 32.7 PG (27-31); MCHC 34.5 g/dL (33-37); MCV 94.7 FL (81-99); MONO# 0.63 X1000 (0.11-0.59); MONO% 9.8 % (1.7-9.3); MPV 9.3 FL (7.4-10.4); NEUT% 52.6 % (42.2-75.2); PLT 224 X1000 (130-400); RBC 3.95 XMIL (4.7-6.1)
[2016-10-06 15:39] LABS: AGAP 10; ALBUMIN 3.7 g/dL (3.5-5.0); ALKALINE PHOSPHATASE 82 U/L (32-122); BUN 36 mg/dL (8-22); CALCIUM 9.1 mg/dL (8.8-10.2); CHLORIDE 98 mmol/L (98-107); COSMO 273; GOT 15 U/L (10-34); GPT 8 U/L (10-44); POTASSIUM 4.7 mmol/L (3.5-5.1); SODIUM 132 mmol/L (136-145); TCO2 24 mmol/L (25-35); TOTAL BILIRUBIN 0.26 mg/dL (0.20-1.00)
[2016-10-06] MEDS ORDERED: D5W IV ONE ×3 (16:00→18:00)
[2016-10-06] MEDS ORDERED: CAMPTOSAR IV ONE ×2 (16:00→18:00)
[2016-10-06] MEDS ORDERED: NS IV ONE ×2 (16:30→17:00)
[2016-10-06] MEDS ORDERED: ZOFRAN 16 MG in NS 100 ML IV ONE (16:30)
[2016-10-06] MEDS ORDERED: DECADRON IV ONE (16:30)
--- NOTE | 2016-10-06 16:40 | HISTORY AND PHYSICAL ---
PRIMARY CARE PHYSICIAN: Dr. Marshall. PRIMARY ONCOLOGIST: Dr. Flores. PRIMARY INTERNAL MEDICINE NURSE: Dr. Jennings. CHIEF COMPLAINT: Patient has metastatic rectal adenocarcinoma to the liver, and he is here for cycle 4 FOLFIRI and Avastin. HISTORY OF PRESENT ILLNESS: This is a 66-year-old, male with metastatic rectal adenocarcinoma to the liver status post 3 cycles FOLFIRI with Avastin. He has tolerated it well. He is here for initiation of cycle 4. His labs and vital signs have been stable in the clinic. He has been feeling quite well. Denies fevers, chills. No new signs of bone pain, no abdominal symptoms, any clinical bleeding, black or bright red stool. He does continue to smoke cigarettes. He has a left port intact. REVIEW OF SYSTEMS: Negative unless indicated in HPI. ALLERGIES: There are no known allergies. HOME MEDICATIONS: Phenergan, Reglan, Zofran p.r.n. and Ulm 10 mg every 6 hours p.r.n. SOCIAL/FAMILY HISTORY: Patient has smoked half pack a day for the past 40 years. Denies alcohol or illicit drug use. PAST MEDICAL HISTORY: Metastatic rectal adenocarcinoma to the liver, hyperlipidemia and COPD. PHYSICAL EXAM: VITAL SIGNS: Stable. GENERAL: male in no acute distress. HEENT: Head is normocephalic, atraumatic. Mucous membranes are moist. CARDIOVASCULAR: S1, S2 audible to auscultation with no heaves, lifts or thrills. PULMONARY: Breath sounds clear to auscultation with normal respiratory effort. GI: Abdomen soft, nontender, nondistended. Positive bowel sounds in all 4 quadrants. LYMPHATICS: No palpable enlarged lymph nodes. SKIN: No petechiae, rash or ecchymosis. NEUROLOGIC: Alert and oriented x3. PSYCHIATRIC: Appropriate to situation. ASSESSMENT AND PLAN: 1. Metastatic rectal adenocarcinoma to the liver. He is to receive his fourth cycle of FOLFIRI and Avastin at full dose. Monitor for infusional reactions and side effects. Plan discharge on day 3 and follow up in the clinic after that unless concerns in the interim. We will continue to monitor his labs while he is inpatient. 2. Intravenous access. Patient has a port in place that looks well. 3. Nicotinism. We will give patient a transdermal nicotine patch and advise him to discontinue smoking. 4. Chronic obstructive pulmonary disease. He will have his albuterol inhalers on an as-needed basis. 5. Pain. Ulm as needed. Dictated by ASHLEY Charles for Nikita Flores MD cc: ASHLEY Charles MD
[2016-10-06] MEDS ORDERED: AVASTIN IV ONE (17:00)
[2016-10-06] MEDS ORDERED: NORCO-10 PO PRN (17:29)
[2016-10-06] MEDS ORDERED: VENTOLIN HFA INH PRN (17:29)
[2016-10-06] MEDS ORDERED: ATROPINE IV ONE (18:00)
[2016-10-06] MEDS ORDERED: [UNRECOGNIZED DRUG - OTHER] IV ONE (18:00)
[2016-10-06] MEDS: NICODERM PATCH TD SCH (18:06)
[2016-10-06] MEDS: XANAX PO PRN ×2 (18:06→22:21)
[2016-10-06] MEDS ORDERED: [UNRECOGNIZED DRUG - MIXTURE] IV ONE (20:00)
[2016-10-06] MEDS: PHENERGAN PO PRN ×2 (20:06→23:37)
[2016-10-06] MEDS: MEVACOR PO SCH (20:06)
[2016-10-06] MEDS: NORCO-10 PO PRN ×2 (20:07→23:37)
[2016-10-06] MEDS ORDERED: [UNRECOGNIZED DRUG - OTHER] IV SCH (20:15)
[2016-10-06] MEDS ORDERED: NS IV SCH (20:15)
[2016-10-07] MEDS: NORCO-10 PO PRN ×2 (03:26→06:40)
[2016-10-07] MEDS: PHENERGAN PO PRN ×2 (06:36→09:43)
[2016-10-07] MEDS: PRILOSEC PO SCH (06:36)
[2016-10-07] MEDS: XANAX PO PRN ×2 (06:36→21:57)
[2016-10-07] MEDS: NICODERM PATCH TD SCH (06:43)
[2016-10-07 08:53] LABS: MANUAL DIFF NEEDED? NO
[2016-10-07 08:55] LABS: BASO% 0.1 % (0.0-0.8); HEMATOCRIT 36.2 % (42.0-52.0); HEMOGLOBIN 12.4 g/dL (14.0-18.0); LYMPH# 0.96 X1000 (1.2-3.4); LYMPH% 10.7 % (20.5-51.1); MCH 31.8 PG (27-31); MCHC 34.3 g/dL (33-37); MCV 92.8 FL (81-99); MONO# 0.47 X1000 (0.11-0.59); MONO% 5.2 % (1.7-9.3); MPV 8.8 FL (7.4-10.4); PLT 219 X1000 (130-400)
[2016-10-07] MEDS: PROZAC PO SCH (09:40)
[2016-10-07] MEDS: NEURONTIN PO SCH ×3 (09:40→16:24)
[2016-10-07] MEDS: MOBIC PO SCH (09:40)
[2016-10-07] MEDS: MIRALAX PO SCH (09:41)
[2016-10-07 09:45] LABS: AGAP 15; ALBUMIN 3.6 g/dL (3.5-5.0); ALKALINE PHOSPHATASE 78 U/L (32-122); BUN 30 mg/dL (8-22); CALCIUM 8.8 mg/dL (8.8-10.2); CHLORIDE 99 mmol/L (98-107); COSMO 283; GOT 12 U/L (10-34); GPT 9 U/L (10-44); SODIUM 137 mmol/L (136-145); TCO2 23 mmol/L (25-35); TOTAL BILIRUBIN 0.25 mg/dL (0.20-1.00); TOTAL PROTEIN 6.8 g/dL (6.3-8.3)
[2016-10-07] MEDS: TYLENOL PO PRN ×2 (16:24→21:57)
[2016-10-07] MEDS ORDERED: ZOFRAN 16 MG in NS 100 ML IV ONE (18:30)
[2016-10-07] MEDS ORDERED: [UNRECOGNIZED DRUG - MIXTURE] IV ONE (19:00)
[2016-10-07] MEDS ORDERED: NS IV SCH (19:15)
[2016-10-07] MEDS ORDERED: [UNRECOGNIZED DRUG - OTHER] IV SCH (19:15)
[2016-10-07] MEDS: MEVACOR PO SCH (20:51)
[2016-10-07 23:08] LABS: BILIRUBIN URINE NEGATIVE (NEGATIVE); BLOOD URINE NEGATIVE (NEGATIVE); CLARITY CLEAR (CLEAR); COLOR STRAW; GLUCOSE URINE NEGATIVE (NEGATIVE); LEUKOCYTES URINE NEGATIVE (NEGATIVE); NITRITE URINE NEGATIVE (NEGATIVE); PROTEIN URINE NEGATIVE (NEGATIVE); SP GRAVITY URINE 1.015; UROBILINOGEN URINE 0.2 EU/dL (0.2-1.0)
[2016-10-07 23:09] LABS: URINE SOURCE VOIDED
[2016-10-08] MEDS: NICODERM PATCH TD SCH ×2 (05:27→10:13)
[2016-10-08] MEDS: XANAX PO PRN ×3 (05:27→21:20)
[2016-10-08] MEDS: PRILOSEC PO SCH (06:04)
[2016-10-08 07:02] LABS: MANUAL DIFF NEEDED? NO
[2016-10-08 07:13] LABS: BASO% 0.3 % (0.0-0.8); EOS# 0.07 X1000 (0.0-0.7); EOS% 0.7 % (0.0-10.0); HEMATOCRIT 37.4 % (42.0-52.0); HEMOGLOBIN 12.9 g/dL (14.0-18.0); LYMPH# 2.64 X1000 (1.2-3.4); LYMPH% 27.6 % (20.5-51.1); MCH 32.6 PG (27-31); MCHC 34.5 g/dL (33-37); MCV 94.4 FL (81-99); MONO# 1.08 X1000 (0.11-0.59); MONO% 11.3 % (1.7-9.3); MPV 9.7 FL (7.4-10.4); NEUT% 60.1 % (42.2-75.2); PLT 234 X1000 (130-400); RBC 3.96 XMIL (4.7-6.1)
[2016-10-08 07:27] LABS: AGAP 11; ALBUMIN 3.5 g/dL (3.5-5.0); ALKALINE PHOSPHATASE 72 U/L (32-122); BUN 25 mg/dL (8-22); CHLORIDE 103 mmol/L (98-107); COSMO 282; GOT 18 U/L (10-34); GPT 15 U/L (10-44); POTASSIUM 4.3 mmol/L (3.5-5.1); SODIUM 139 mmol/L (136-145); TCO2 25 mmol/L (25-35); TOTAL PROTEIN 6.3 g/dL (6.3-8.3)
[2016-10-08] MEDS: MOBIC PO SCH (10:13)
[2016-10-08] MEDS: PROZAC PO SCH (10:13)
[2016-10-08] MEDS: MIRALAX PO SCH (10:13)
[2016-10-08] MEDS: NEURONTIN PO SCH ×3 (10:13→16:39)
[2016-10-08] MEDS: TYLENOL PO PRN ×2 (11:37→21:20)
[2016-10-08] MEDS ORDERED: ALEVE PO PRN (14:36)
[2016-10-08 19:53] VITALS: BP 135/54
[2016-10-08] MEDS: MEVACOR PO SCH (21:20)
--- NOTE | 2016-10-09 11:26 | DISCHARGE SUMMARY ---
ADMISSION DATE: 10/06/2016 DISCHARGE DATE: 10/08/2016 ADMITTING DIAGNOSES: 1. Metastatic rectal carcinoma to the liver. 2. Chronic obstructive pulmonary disease. 3. Nicotinism. DISCHARGE SUMMARY: 1. Metastatic rectal adenocarcinoma to the liver. 2. Chronic obstructive pulmonary disease. 3. Nicotinism. HOSPITAL COURSE/TREATMENT: This male with history of metastatic rectal adenocarcinoma to the liver was admit to the hospital for his 4th cycle of FOLFIRI with Avastin. The patient tolerated it very well. He received it through his port. His labs were very stable. He did not have any fever, any new abdominal symptoms or clinical bleeding during his stay. His pain was controlled with p.r.n. [place] which he takes at home. He has completed cycle 4 of FOLFIRI and Avastin and was discharged home with self care. DISCHARGE VITAL SIGNS: Stable. IMAGING STUDIES: There was no imaging. DISCHARGE DIET: Regular. DISPOSITION: Home with self skilled nursing MEDICATIONS: [place] 10 mg every 4 hours p.r.n., nicotine patch, Meloxicam 15 mg daily, lovastatin 20 mg daily and Xanax 0.25 p.o. t.i.d. p.r.n. DISCHARGE INSTRUCTIONS: Disposition home with self care. The patient going to follow up in our clinic with Dr. Flores as an outpatient in the near future. Dictated by ASHLEY Charles for Nikita Flores MD cc: ASHLEY Charles MD
== END 2016-10-08 22:45 | disposition home or self-care (01) ==
LOC: DIRADM 12:39 → 3N 13:00
PROVIDERS: ADMIT Internal Medicine Medical Oncology; ATTEND Internal Medicine Medical Oncology